=== PATIENT | female | born 1955 | race Caucasian/White ===

== ENCOUNTER 2024-07-07 15:03 | Emergency (ER) | payer OTHER, SELFPAY ==
[2024-07-07 15:12] VITALS: BP 168/90; PULSE 80; RESP 16; TEMP 36.3; O2SAT 96; BMI 31.2
--- NOTE | 2024-07-07 16:21 | DI.MRI.S_ITS ---
PROCEDURE: MR LUMBAR SPINE WO/W CON INDICATIONS: Numbness or tingling to the groin, difficulty urinating TECHNIQUE: Noncontrast sagittal T1 spin echo and T2 fast spin echo, sagittal STIR, axial T1 and T2 fast spin echo through the lumbar spine. In cases with scoliosis, additional coronal T2 fast spin echo may be performed. After the administration of contrast, sagittal and axial T1 spin echo with fat saturation through the lumbar spine. COMPARISON: None. FINDINGS: Image quality: Excellent. Alignment and curvature: No spondylolisthesis. Marrow: Multilevel disc desiccation. No acute fracture. No suspicious vertebral body enhancement. Spinal cord: Cord terminates in normal position. Unremarkable appearance of the cauda equina nerve roots. Paraspinous soft tissues: No paravertebral fluid collection or mass identified T12-L1: Small diffuse disc bulge and mild facet arthropathy. No stenosis. L1-L2: Small diffuse disc bulge and mild facet arthropathy. Mild narrowing at the left subarticular recess. Mild right neural foraminal narrowing. L2-L3: Euik-py-srxdjhio diffuse disc bulge. Gwta-si-mgkmejpm facet arthropathy. Mild narrowing of the right subarticular recess. Mild bilateral neural foraminal narrowing. L3-L4: Qioy-nd-hbdokwel diffuse disc bulge and facet arthropathy. Mild narrowing of the right subarticular recess. L4-L5: Moderate diffuse disc bulge and facet arthropathy. Mild central narrowing. Zjmj-du-hywphmcd right and mild left neural foraminal narrowing. L5-S1: Diffuse disc bulge and annular fissure. Mild left neural foraminal narrowing IMPRESSION: Mild to moderate spondylosis of the lumbar spine without area of critical stenosis. No suspicious osseous enhancement identified. Dictated by: Fredo Gibbs M.D. on 07/07/2024 at 19:38 Approved by: Fredo Gibbs M.D. on 07/07/2024 at 19:42
--- NOTE | 2024-07-07 16:27 | ED.BACK ---
HPI - Back Pain/Injury <Fabiola Mosley PA-C - Last Filed: 07/08/24 10:30> General Chief Complaint: Back Pain/Injury Stated Complaint: lower back and leg px and numbness Time Seen by Provider: 07/07/24 16:21 History of Present Illness HPI Narrative: Patient is a very pleasant 69-year-old female that presents to the emergency room department with lower lumbar discomfort and pain, numbness and tingling that radiates around from her back into her groin and down both friends of her legs right greater than left with bilateral lower extremity weakness right greater than left. With a numbness radiating down the front of her legs down past the knee and into the right calf. With complaints of weakness upon standing, feeling unsteady, difficulty walking 2 to feeling as if her legs are going to give out on her. All of these symptoms are new. Patient lives in [place], currently here visiting her son, last night the patient was lying on a inflatable bed, throughout the night slowly the bed deflated, and the patient found herself kind of laying in a goalie of the bed and lying on the floor. This happened slowly throughout the night. Patient tried to get up this morning from the floor and had difficulty standing, and pain upon standing. Patient denies recent injury, trauma or fall. She has had no recent injury or issues with her back previously. She has not had any numbness or tingling previously in the extremity. 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 Related Data Previous Rx's Medication Instructions Recorded methylprednisolone 4 mg tablets in See Rx Instructions PO .COMPLEX 07/07/24 a dose pack (Medrol (Dominik)) #21 ea oxycodone 5 mg tablet 5 mg PO Q6H PRN pain #10 tabs 07/07/24 Allergies Allergy/AdvReac Type Severity Reaction Status Date / Time erythromycin base Allergy Verified 07/07/24 15:12 Review of Systems <Fabiola Mosley PA-C - Last Filed: 07/08/24 10:30> Review of Systems Narrative: Negative except as above Gastrointestinal Comments: Decrease in appetite Genitourinary Comments: Urinary retention Musculoskeletal Comments: Bilateral lower extremity weakness right greater than left, bilateral lower extremity numbness down past the knees, and into the right calf. Numbness into the groin area. No lauren rectal numbness, or vaginal numbness. Bilateral lower extremity shakiness and unsteadiness with attempting to walk, feels is going to give out. Neurologic Comments: Weakness and numbness and tingling to the lower extremities. Right greater than left. Difficulty dorsal and plantar flexion of the right foot, definite weakness to the right lower extremity versus the left. Exam <Fabiola Mosley PA-C - Last Filed: 07/08/24 10:30> Initial Vital Signs Initial Vital Signs: Vital Signs Temperature 97.4 F L 07/07/24 15:12 Pulse Rate 80 07/07/24 15:12 Respiratory Rate 16 07/07/24 15:12 Blood Pressure 168/90 H 07/07/24 15:12 Pulse Oximetry 96 07/07/24 15:12 Oxygen Delivery Method Room Air 07/07/24 15:12 Reviewed Const General: cooperative, healthy appearing, comfortable, well developed, well groomed, No acute distress, No in distress and No anxious Nutritional Appearance: well nourished and overweight Orientation: Orientation [facility] Head: normal to inspection and normocephalic Eyes General: Yes appearance normal, both eyes and all related structures Eyelids: eyelids normal Conjunctivae: conjunctivae normal Sclera: sclerae normal Pupils: PERRL EOM: EOM intact bilaterally Neck Neck: normal visual inspection and full ROM Resp Effort & Inspection: normal respiratory effort, able to speak in complete sentences, no audible wheezes, no respiratory distress, no retractions and no stridor Auscultation: clear to auscultation bilaterally, no bronchial breath sounds, no bronchovesicular breath sounds, no crackles, no rales, no rhonchi and no wheezes Cardio Rate: regular rate Rhythm: regular rhythm Heart Sounds: S1 normal, S2 normal, no click, no gallops, no murmurs and no rubs Pulses: brachial pulses present, radial pulses present, popliteal pulses present, dorsalis pedis present and normal peripheral pulses Skin General: no rashes or lesions noted and turgor normal Neuro General: patient alert, patient awake, patient oriented x3 and oriented Other: Patient has decreased sensation into the groin bilaterally, she is able to lift both of the legs actively, left greater than right. Against resistance the right leg is noticeably weaker than the left. Plantar and dorsiflexion the right is noticeably weaker than the left. She has difficulty with plantar and dorsiflexion of the right foot. She is difficulty holding the right leg up for an extended period of time. Her exam of upper extremities shows bilateral range of motion, strength, pulses, cap refill is preserved. Lower cap refill and pulses are preserved. There is no signs of muscle wasting. She is decreased sensation and numbness and tingling to the lower extremities down into the knees. And into the right calf. Patient has retained urine about 400 cc. She was able to void on her own. Currently unable to walk due to unsteadiness. Using a wheelchair. Which is not normal for her. Extrem Other: See neuro exam Psych Appearance: grossly normal and well kempt Mental Status: mental status grossly normal Speech and Movement: speech and movement normal Mood: congruent mood Affect: normal affect Attitude: cooperative Thought Process: normal Thought Content: normal Judgment: judgment good <Riri Henley DO - Last Filed: 07/11/24 07:22> Initial Vital Signs Initial Vital Signs: Vital Signs Temperature 97.4 F L 07/07/24 15:12 Pulse Rate 80 07/07/24 15:12 Respiratory Rate 16 07/07/24 15:12 Blood Pressure 168/90 H 07/07/24 15:12 Pulse Oximetry 96 07/07/24 15:12 Oxygen Delivery Method Room Air 07/07/24 15:12 Course <Fabiola Mosley PA-C - Last Filed: 07/08/24 10:30> Orders Ordered: Discontinued Medications Dexamethasone (Dexamethasone 10 Mg/Ml Vial) 10 mg IV NOW ONE Stop: 07/07/24 20:26 Last Admin: 07/07/24 20:33 Dose: 10 mg Documented By: SUDHIR Ketorolac Tromethamine (Ketorolac 30 Mg/Ml Vial) 30 mg IV NOW ONE Stop: 07/07/24 17:33 Last Admin: 07/07/24 17:36 Dose: 30 mg Documented By: MAO Reevaluation(s) Reevaluation #1: 5:49 p.m. patient improved after the Toradol IV. She states pain is better. Patient currently in a wheelchair. Vital Signs Vital signs: Vital Signs - 8 hr 07/07/24 19:30 07/07/24 20:00 07/07/24 20:30 Pulse Rate 88 81 83 Blood Pressure Pulse Oximetry 96 95 96 07/07/24 20:51 07/07/24 20:51 Pulse Rate 87 Blood Pressure 182/79 H Pulse Oximetry 98 Reviewed <Riri Henley DO - Last Filed: 07/11/24 07:22> Orders Ordered: Discontinued Medications Dexamethasone (Dexamethasone 10 Mg/Ml Vial) 10 mg IV NOW ONE Stop: 07/07/24 20:26 Last Admin: 07/07/24 20:33 Dose: 10 mg Documented By: SUDHIR Ketorolac Tromethamine (Ketorolac 30 Mg/Ml Vial) 30 mg IV NOW ONE Stop: 07/07/24 17:33 Last Admin: 07/07/24 17:36 Dose: 30 mg Documented By: MAO Vital Signs Vital signs: Vital Signs - 8 hr 07/07/24 19:30 07/07/24 20:00 07/07/24 20:30 Pulse Rate 88 81 83 Blood Pressure Pulse Oximetry 96 95 96 07/07/24 20:51 07/07/24 20:51 Pulse Rate 87 Blood Pressure 182/79 H Pulse Oximetry 98 MDM - Back Pain/Injury <Fabiola Mosley PA-C - Last Filed: 07/08/24 10:30> Lab Data 07/07/24 16:37 07/07/24 16:37 Labs: Lab Results 07/07/24 Range/Units 16:37 WBC 13.5 H (4.5-11.0) X10^3/uL RBC 5.44 H (4.0-5.2) X10^6/uL Hgb 15.6 (12.0-16.0) g/dL Hct 47.9 H (36-46) % MCV 88.0 (80-100) fL MCH 28.7 (26-34) PG MCHC 32.6 (30-36) % RDW 13.7 (11.6-14.8) % Plt Count 331 (150-400) X10^3/uL Neut % (Auto) 71.4 (50-75) % Lymph % (Auto) 18.5 L (25-40) % Davie % (Auto) 8.2 (3-14) % Eos % (Auto) 1.0 L (2-4) % Baso % (Auto) 0.9 (0-2) % Neut # (Auto) 9600 H (8056-8532) /uL Lymph # (Auto) 2500 (1472-4728) /uL Davie # (Auto) 1100 H (0-900) /uL Eos # (Auto) 100 (0-450) /uL Baso # (Auto) 100 (0-100) /uL Sodium 132 L (137-145) mmol/L Potassium 4.1 (3.4-5.1) mmol/L Chloride 101 (98-107) mmol/L Carbon Dioxide 23 (22-32) mmol/L BUN 13 (7-17) mg/dL Creatinine 0.63 (0.52-1.04) mg/dL Estimated GFR > 60 (>60) mL/min BUN/Creatinine Ratio 20.6 (6-22) Glucose 119 H (80-110) mg/dL Calcium 9.4 (8.4-10.2) mg/dL Total Bilirubin 0.8 (0.2-1.3) mg/dL AST 26 (14-36) IU/L ALT 25 (<35) IU/L Alkaline Phosphatase 78 (38-126) U/L Total Protein 7.9 (6.3-8.2) g/dL Albumin 4.3 (3.5-5.0) g/dL Globulin 3.6 (1.7-4.1) g/dL Albumin/Globulin Ratio 1.2 (1.0-2.8) Urine Dip Bedside Urine Glucose Negative Bedside Urine Bilirubin - Negative Bedside Urine Ketone - Negative Urine Specific [place] 1.010 Bedside Urine Occult Blood - Negative Bedside Urine pH 6.0 Bedside Urine Protein - Negative Bedside Urine Urobilinogen +/- 1mg Bedside Urine Nitrite - Negative Bedside Urine Leukocytes - Negative Esterase MDM Narrative Medical decision making narrative: Patient is a very pleasant 69-year-old female presents to the emergency room department with her son. With a sudden onset of lower lumbar discomfort and pain and wrapping around numbness and tingling into the groin down bilateral legs past the knee and into the right. With bilateral lower extremity weakness right greater than left, with bilateral lower extremity dorsal and plantar flexion weakness right greater than left., gait unsteadiness, weakness, shakiness legs, with no recent injury, proper fall. All the symptoms started this morning after the patient slept on an air mattress that slowly deflated throughout the evening, the patient found herself on a hard floor this morning and had difficulty getting up on her own. The symptoms have continued since this morning. She is also noted that she has not had a bowel movement, and it is now having difficulty expressing urine. Bladder scan showed 400 cc of urine. IV was established Labs were drawn An MRI has been ordered and is going to be done at 6:00 p.m. lumbar spine with and without contrast 30 mg of IV Toradol has been ordered for pain relief Patient has been wheeled to the bathroom and was able give us a urine sample and a urine has been collected Plan after the MRIs patient will be taken over to the main ED, Luna catheter was placed for comfort Concerns for cauda equina or some type of acute disc related injury causing pressure on nerve causing some type of inflammatory response right greater than left. Differential diagnosis. Possible cauda equina, inflammatory reaction associated with degenerative disc disease, disc bulge. Patient will be transferred to the emergency department sign out will be given to the emergency department <Riri Henley, DO - Last Filed: 07/11/24 07:22> Lab Data Labs: Lab Results 07/07/24 Range/Units 16:37 WBC 13.5 H (4.5-11.0) X10^3/uL RBC 5.44 H (4.0-5.2) X10^6/uL Hgb 15.6 (12.0-16.0) g/dL Hct 47.9 H (36-46) % MCV 88.0 (80-100) fL MCH 28.7 (26-34) PG MCHC 32.6 (30-36) % RDW 13.7 (11.6-14.8) % Plt Count 331 (150-400) X10^3/uL Neut % (Auto) 71.4 (50-75) % Lymph % (Auto) 18.5 L (25-40) % Davie % (Auto) 8.2 (3-14) % Eos % (Auto) 1.0 L (2-4) % Baso % (Auto) 0.9 (0-2) % Neut # (Auto) 9600 H (3156-5256) /uL Lymph # (Auto) 2500 (5657-8703) /uL Davie # (Auto) 1100 H (0-900) /uL Eos # (Auto) 100 (0-450) /uL Baso # (Auto) 100 (0-100) /uL Sodium 132 L (137-145) mmol/L Potassium 4.1 (3.4-5.1) mmol/L Chloride 101 (98-107) mmol/L Carbon Dioxide 23 (22-32) mmol/L BUN 13 (7-17) mg/dL Creatinine 0.63 (0.52-1.04) mg/dL Estimated GFR > 60 (>60) mL/min BUN/Creatinine Ratio 20.6 (6-22) Glucose 119 H (80-110) mg/dL Calcium 9.4 (8.4-10.2) mg/dL Total Bilirubin 0.8 (0.2-1.3) mg/dL AST 26 (14-36) IU/L ALT 25 (<35) IU/L Alkaline Phosphatase 78 (38-126) U/L Total Protein 7.9 (6.3-8.2) g/dL Albumin 4.3 (3.5-5.0) g/dL Globulin 3.6 (1.7-4.1) g/dL Albumin/Globulin Ratio 1.2 (1.0-2.8) Urine Dip Bedside Urine Glucose Negative Bedside Urine Bilirubin - Negative Bedside Urine Ketone - Negative Urine Specific [place] 1.010 Bedside Urine Occult Blood - Negative Bedside Urine pH 6.0 Bedside Urine Protein - Negative Bedside Urine Urobilinogen +/- 1mg Bedside Urine Nitrite - Negative Bedside Urine Leukocytes - Negative Esterase Imaging Data MR Lspine: Radiologist's Impression: Close Lumbar Spine MRI (Signed) SaiFredo - 07/07/[address] [address] Magnetic Resonance Report Signed Patient: Cari Enciso MR#: [id number] : 1955 Acct:[id number] Age/Sex: 69 / F Date of Service: 07/07/24 Loc: ED Accession Number: [id number] Procedure: MR lumbar spine wo/w con Ordering Provider: Fabiola Mosley PA-C PROCEDURE: MR LUMBAR SPINE WO/W CON INDICATIONS: Numbness or tingling to the groin, difficulty urinating TECHNIQUE: Noncontrast sagittal T1 spin echo and T2 fast spin echo, sagittal STIR, axial T1 and T2 fast spin echo through the lumbar spine. In cases with scoliosis, additional coronal T2 fast spin echo may be performed. After the administration of contrast, sagittal and axial T1 spin echo with fat saturation through the lumbar spine. COMPARISON: None. FINDINGS: Image quality: Excellent. Alignment and curvature: No spondylolisthesis. Marrow: Multilevel disc desiccation. No acute fracture. No suspicious vertebral body enhancement. Spinal cord: Cord terminates in normal position. Unremarkable appearance of the cauda equina nerve roots. Paraspinous soft tissues: No paravertebral fluid collection or mass identified T12-L1: Small diffuse disc bulge and mild facet arthropathy. No stenosis. L1-L2: Small diffuse disc bulge and mild facet arthropathy. Mild narrowing at the left subarticular recess. Mild right neural foraminal narrowing. L2-L3: Fjpk-ax-lqwguior diffuse disc bulge. Nuxs-ff-rcmijkkb facet arthropathy. Mild narrowing of the right subarticular recess. Mild bilateral neural foraminal narrowing. L3-L4: Dhmf-ia-crjybfhv diffuse disc bulge and facet arthropathy. Mild narrowing of the right subarticular recess. L4-L5: Moderate diffuse disc bulge and facet arthropathy. Mild central narrowing. Hyql-yg-gevxkufg right and mild left neural foraminal narrowing. L5-S1: Diffuse disc bulge and annular fissure. Mild left neural foraminal narrowing IMPRESSION: Mild to moderate spondylosis of the lumbar spine without area of critical stenosis. No suspicious osseous enhancement identified. Dictated by: Fredo Gibbs M.D. on 07/07/2024 at 19:38 Approved by: Fredo Gibbs M.D. on 07/07/2024 at 19:42 MDM Narrative Medical decision making narrative: Patient is a very pleasant 69-year-old female presents to the emergency room department with her son. With a sudden onset of lower lumbar discomfort and pain and wrapping around numbness and tingling into the groin down bilateral legs past the knee and into the right. With bilateral lower extremity weakness right greater than left, with bilateral lower extremity dorsal and plantar flexion weakness right greater than left., gait unsteadiness, weakness, shakiness legs, with no recent injury, proper fall. All the symptoms started this morning after the patient slept on an air mattress that slowly deflated throughout the evening, the patient found herself on a hard floor this morning and had difficulty getting up on her own. The symptoms have continued since this morning. She is also noted that she has not had a bowel movement, and it is now having difficulty expressing urine. Bladder scan showed 400 cc of urine. IV was established Labs were drawn An MRI has been ordered and is going to be done at 6:00 p.m. lumbar spine with and without contrast 30 mg of IV Toradol has been ordered for pain relief Patient has been wheeled to the bathroom and was able give us a urine sample and a urine has been collected Plan after the MRIs patient will be taken over to the main ED, Luna catheter was placed for comfort Concerns for cauda equina or some type of acute disc related injury causing pressure on nerve causing some type of inflammatory response right greater than left. Differential diagnosis. Possible cauda equina, inflammatory reaction associated with degenerative disc disease, disc bulge. Patient will be transferred to the emergency department sign out will be given to the emergency department 07/07/2024 Dr. Henley: Patient signed out to myself. Patient is seen and evaluated by myself. Patient had Toradol earlier this evening has not ambulated but needed some assistance. Has had weakness right greater than left. Patient had 400 mL on initial bladder scan, patient on postvoid residual has 10-12 mL. MR shows qlow-ao-nhutudrm spondylosis of lumbar spine without areas of critical stenosis, cauda equina nerve roots are unremarkable. On my own exam patient has fairly equal sensation, does have weakness with plantar flexion dorsiflexion on the right compared to the left. Little of decreased weakness with extension of the right lower extremity but has equal strength with flexion at the knee as well as at the thigh bilaterally. DTRs are equal bilaterally. No saddle anesthesia. Normal rectal tone. Patient states pain is controlled at this time. She does note that the weakness numbness tingling or definitely new she has had some back pain in the past but not had the neurologic changes. Reviewed her findings from today. Spoke with Dr. Squires, orthopedic surgery; Reviewed findings from patient's MR in their entirety. Recommends Medrol Dosepak, if persisting or worsening at all to call the office to be seen. Strict return precautions. Discussed with patient she feels comfortable with this plan. We will send prescriptions locally. Give her a disc of her images she does not live locally but we will give local orthopedic contact she is here 3 part of this week. Discussed with patient return precautions, she expressed understanding her son was at bedside as well. Discharge Plan Departure Patient Disposition: Home Clinical Impression: Lumbar back pain with radiculopathy affecting right lower extremity Instructions: DI for Lumbar Radiculopathy Activity Restrictions/Additional Instructions: Follow up with Orthopedic surgery. Contact for local orthopedic surgeries included below. Please call for an appointment here or at home. A disc with your imaging from your MRI is included. It shows some gsou-jx-lbgsywbh spondylosis of the lumbar spine but without any areas of spinal stenosis, no changes to the cauda equina nerve roots but there is aitm-rn-pxqhxcft diffuse disc bulge and narrowing in the lumbar spine, as well as at L5-S1 with some diffuse disc bulge and annular fissure. These were all reviewed with the on-call surgeon Dr. Squires Take steroids daily until gone. Can take Tylenol up to a 1000 mg every 6 hours as needed, ibuprofen up to 600 mg every 6 hours if tolerated. If necessary can take 1-2 tablets of narcotic pain medication every 6 hours as needed. This medication can make you sleepy do not drive, perform hazardous activities or make any major decisions while taking it. This medication will make you constipated please take a stool softener once to twice daily until stools are soft and regular. Prescription sent to [facility] in [place]. Please return for fevers, rapidly worsening back pain, worsening weakness increasing or worsening weakness numbness or difficulty with moving of your right or left lower extremity, any loss of bowel or bladder control, any urinary retention, decreased or loss of sensation in the groin or other new or concerning changes. Prescriptions: New methylprednisolone [Medrol (Dominik)] 4 mg tablets,dose pack See Rx Instructions .ROUTE .COMPLEX Qty: 21 0RF Rx Instructions: 6 tabs p.o. x1 day, then 5 tabs p.o. x1 day, then 4 tablets p.o. x1 day, then 3 tabs p.o. x1 day, then 2 tabs p.o. x1 day, then 1 tab p.o. x1 day oxycodone 5 mg tablet 5 mg PO Q6H PRN (Reason: pain) Qty: 10 0RF Referrals: Osiris Squires MD [Physician] - Miscellaneous,MD Madison [Primary Care Provider] - Stand Alone Forms: Patient Portal/API
[2024-07-07 16:56] LABS: Add Manual Diff / Slide Review NO; Basophils Absolute Auto 100 /uL (0-100); Basophils Percent Auto 0.9 % (0-2); Eosinophils Absolute Auto 100 /uL (0-450); Hematocrit 47.9 % (36-46); Hemoglobin 15.6 g/dL (12.0-16.0); Lymphocytes Absolute Auto 2500 /uL (1100-4500); Lymphocytes Percent Auto 18.5 % (25-40); Mean Corpuscular HGB Conc 32.6 % (30-36); Mean Corpuscular Hemoglobin 28.7 PG (26-34); Monocytes Absolute Auto 1100 /uL (0-900); Monocytes Percent Auto 8.2 % (3-14); Neutrophils Absolute Auto 9600 /uL (1500-7000); Neutrophils Percent Auto 71.4 % (50-75); Platelet Count 331 X10^3/uL (150-400); Red Blood Cell Count 5.44 X10^6/uL (4.0-5.2); Red Cell Distribution Width 13.7 % (11.6-14.8); White Blood Cell Count 13.5 X10^3/uL (4.5-11.0)
[2024-07-07 17:21] LABS: Alanine Aminotransferase 25 IU/L (<35); Albumin 4.3 g/dL (3.5-5.0); Albumin Globulin Ratio 1.2 (1.0-2.8); Alkaline Phosphatase 78 U/L (38-126); Aspartate Aminotransferase 26 IU/L (14-36); BUN Creatinine Ratio 20.6 (6-22); Bilirubin Total 0.8 mg/dL (0.2-1.3); Blood Urea Nitrogen 13 mg/dL (7-17); Calcium 9.4 mg/dL (8.4-10.2); Carbon Dioxide 23 mmol/L (22-32); Chloride 101 mmol/L (98-107); Estimated Glomerular Filt Rate > 60 mL/min (>60); Globulin 3.6 g/dL (1.7-4.1); Glucose 119 mg/dL (80-110); HEMOLYSIS < 15 (0-50); Potassium 4.1 mmol/L (3.4-5.1); Sodium 132 mmol/L (137-145); Total Protein 7.9 g/dL (6.3-8.2)
[2024-07-07] MEDS: KETOROLAC 30 MG/ML VIAL IV (17:36)
[2024-07-07 17:53] VITALS: BP 153/75; PULSE 79; RESP 18; O2SAT 97
[2024-07-07 19:30] VITALS: PULSE 88; O2SAT 96
[2024-07-07 20:00] VITALS: PULSE 81; O2SAT 95
[2024-07-07 20:30] VITALS: PULSE 83; O2SAT 96
[2024-07-07] MEDS: DEXAMETHASONE 10 MG/ML VIAL IV (20:33)
[2024-07-07 20:51] VITALS: BP 182/79; PULSE 87; O2SAT 98
== END 2024-07-07 20:57 | disposition home or self-care (01) ==
PROVIDERS: Physician Assistant; Emergency Provider Emergency Medicine
DX: M54.16 Radiculopathy, lumbar region (principal); R20.2 Paresthesia of skin; R33.9 Retention of urine, unspecified; R79.89 Other specified abnormal findings of blood chemistry
CPT/HCPCS: 36415; 51798; 72158; 80053; 81003; 85025; 96374; 96375; 99284; A9579; J1100; J1885